=== PATIENT | female | born 1965 | race Caucasian/White ===

== ENCOUNTER → 2019-06-27 | Outpatient (CLI) | payer OTHER ==
--- NOTE | 2019-06-27 12:37 | PCVCIMAG ---
APPROVED REPORT Imaging Protocol: Rest Tc-99m/Stress Tc-99m 1 day Study performed: 06/27/2019 10:00:08 Indication: Chest pain, Dyspnea Patient Location: Out-Patient Stress Nurse: SOPHIA Gaytan Tech:Tim Briseno NMTCB Ht: 5 ft 1 in Wt: 122 lbs BSA: 1.53 m2 HR: 93 bpm BP: 146/70 mmHg BMI: 23.0 Rhythm: Sinus Rhythm Medical History Medical History: Age, Hyperlipidemia, HTN, Smoker Medications: Atorvastatin, Amlodipine, Omeprazole Allergies: Tramadol, Sulfa Resting Data Rest SPECT myocardial perfusion imaging was performed in supine position 45 minutes following the intravenous injection of 11.6 mCi of Tc-99m Sestamibi. Time of rest injection: 924 Date: 06/27/2019 Administration Route: IV Administration Site: Right AC Exercise Stress At peak stress, the patient was injected intravenously with 33.4mCi of Tc-99m Sestamibi. Time of stress injection: 1044 Date: 06/27/2019 Administration Route: IV Administration Site: Right AC Patient continued to exercise for 6 minute(s). Gated Stress SPECT was performed 20 minutes after stress injection. The images were gated to evaluate regional wall motion and calculate left ventricular ejection fraction. Stress Test Details Stress Test: Exercise stress testing was performed using a [place] protocol. HRMax Heart Rate (APMHR): 166 bpm Resting HR: 93 bpmTarget HR (85% APMHR): 141 bpm Max HR Achieved: 151 bpm % of APMHR: 90 Recovery HR: 100 bpm BP Resting BP: 146/70 mmHg Max BP: 156/66 mmHg Recovery BP: 124/61 mmHg ECG Resting ECG: Sinus Rhythm Stress ECG: Sinus Tachycardia Arrhythmia: None Recovery ECG: Sinus Tachycardia Clinical Reason for Termination: Maximal effort, Dyspnea Stress Symptoms: Dyspnea Exercise duration: 5 min 20 sec Exercise capacity: 7 METs Overall Exercise Capacity for Age: Reduced Symptoms resolved during recovery. Stress ECG Conclusion 1. subjectively negative for ischemia 2. electrocardiographically negative for ischemia 3. reduced functional capacity Study Data Post stress, the left ventricular ejection was 83%.. SSS: 0 SRS: 0 SDS: 0 TID = 0.72. Perfusion There is a smallsmall area of mildly reduced uptake in the apical segment of the anterior wall which is seen on the stress images as well as the resting images. This area thickens and moves normally and is most consistent with attenuation artifact. Wall Motion Normal left ventricular wall motion. Nuclear Conclusion ECG Findings: negative for ischemia Clinical Findings: negative for ischemia Nuclear Findings: negative for ischemia Exercise Capacity: reduced Left Ventricular Function: normal 1. low risk study based on abscence of inducible ischemia 2. post stress LVEF 83% without wall motion abnormalities Interpreted by: Markus Logan MD Electronically Approved: 06/27/2019 12:36:26 <Conclusion> 1. subjectively negative for ischemia 2. electrocardiographically negative for ischemia 3. reduced functional capacity
== END | disposition home or self-care (01) ==
LOC: PCVCIMAG 09:54
PROVIDERS: ATTEND Internal Medicine
DX: R06.00 Dyspnea, unspecified (principal); R07.9 Chest pain, unspecified; F17.200 Nicotine dependence, unspecified, uncomplicated; Z88.8 Allergy status to other drugs, medicaments and biological substances; Z88.2 Allergy status to sulfonamides
CPT/HCPCS: 78452; 93017; A9500